=== PATIENT | female | born 1970 | race Caucasian/White ===

== ENCOUNTER 2018-04-26 19:34 | Emergency (ER) | payer MEDICAID ==
--- NOTE | 2018-04-26 20:08 | ED Physician Documentation ---
PD HPI LOWER EXT INJURY - Stated complaint Stated Complaint: KNEE PX - Chief complaint Chief Complaint: Ext Problem - History obtained from History obtained from: Patient, Family () - History of Present Illness PD HPI LOW EXT INJURY LOCATION: Right, Knee Type of injury: Other (She felt like she twisted her knee getting off the couch 2 nights ago. It hurts to walk and bear weight but she is painless at rest. It was very swollen yesterday and less so today.) Review of Systems Constitutional: reports: Reviewed and negative Cardiac: reports: Reviewed and negative Respiratory: reports: Reviewed and negative PD PAST MEDICAL HISTORY - Past Medical History Past Medical History: Yes Cardiovascular: Hypertension - Past Surgical History Past Surgical History: Yes /VETERINARIAN: Tubal ligation, Hysterectomy - Present Medications Home Medications: Ambulatory Orders Medication Instructions Recorded Confirmed Atenolol 0 mg PO 04/26/18 - Allergies Allergies/Adverse Reactions: Allergies Allergy/AdvReac Type Severity Reaction Status Date / Time lisinopril Allergy Hives Verified 04/26/18 19:45 - Social History Does the pt smoke?: No Smoking Status: Never smoker Does the pt drink ETOH?: Yes Does the pt have substance abuse?: No - Immunizations Immunizations are current?: Yes - POLST Patient has POLST: No PD ED PE NORMAL - Vitals Vital signs reviewed: Yes - General General: Alert and oriented X 3, No acute distress - Extremities Extremities: Other (The right knee is without deformity or significant effusion. She has mild tenderness over the medial joint line. ACL and PCL are intact but she does have pain with PCL testing. LCL and MCL are intact but she does have pain with MCL testing. She has significant pain with grind testing.) - Neuro Neuro: Alert and oriented X 3, Normal speech Results - Vitals Vitals: Vital Signs - 24 hr 04/26/18 19:41 Temperature 36.7 C Heart Rate 76 Respiratory 18 Rate Blood Pressure 145/81 H O2 Saturation 100 Oxygen O2 Source Room air - Rads (name of study) 4v R knee Radiology: EMP read contemporaneously (OA, No frx) Departure - Departure Disposition: 01 Home, Self Care Clinical Impression: Internal derangement of right knee Condition: Good Record reviewed to determine appropriate education?: Yes Instructions: ED Meniscal Injury Knee Poss Follow-Up: [facility] [Provider Group] - Within 1 week Comments: Keep the splint on when you are up and around but she do not need to wear it in bed or while bathing. Return for new or worsening symptoms. Follow-up with the orthopedics office in about a week for reevaluation.
--- NOTE | 2018-04-26 21:03 | XRAY Report ---
Reason: R knee inj Procedure Date: 04/26/2018 Accession Number: [id number] / [id number] Procedure: XR - Knee 4 View RT CPT Code: FULL RESULT: EXAM: RIGHT KNEE RADIOGRAPHY EXAM DATE: 04/26/2018 08:41 PM. CLINICAL HISTORY: R knee inj. COMPARISON: None. TECHNIQUE: 4 views. FINDINGS: Bones: Normal. No fractures or bone lesions. Joints: Slight medial, joint space narrowing. Tiny patellar marginal osteophytes. No joint effusion. Soft Tissues: Enthesophyte formation at the patellar quadriceps insertion. IMPRESSION: 1. Minimal medial and patellofemoral compartment osteoarthritis. [facility]
[2018-04-26 21:43] VITALS: BP 126/75
== END 2018-04-26 21:44 | disposition home or self-care (01) ==
LOC: ED 19:34
DX: M23.91 Unspecified internal derangement of right knee (principal); I10 Essential (primary) hypertension
CPT/HCPCS: 99282; 99283